=== PATIENT | male | born 1955 | race Caucasian/White ===

== ENCOUNTER 2017-11-21 10:52 | Emergency (ER) | payer SELFPAY ==
[2017-11-21] MEDS ORDERED: Aspirin 325 MG TAB ONE (11:09)
[2017-11-21 11:23] LABS: #Eosinphils 0.1 thou/uL (0.0-0.7); #Lymphocytes 1.6 thou/uL (1.20-3.40); #Monocytes 0.7 thou/uL (0.11-0.59); #Neutrophils 5.8 thou/uL (1.40-6.50); %Basophils 0.4 % (0.0-1.0); %Eosinophils 0.8 % (0.0-10.0); %Lymphocytes 19.2 % (21.0-51.0); %Monocytes 8.6 % (0.0-10.0); Hemoglobin 13.5 g/dL (14.0-18.0); Mean Corpuscular HGB CONC 33.2 g/dL (32.0-36.0); Mean Corpuscular Hemoglobin 31.3 pg (27.0-31.0); Mean Corpuscular Volume 94.2 fl (80.0-94.0); Mean Platelet Volume 6.9 fL (7.4-10.4); Platelet Count 264 thou/uL (130-400); RBC Distribution Width 12.1 % (11.5-14.5); Red Blood Cell (RBC) Count 4.31 mill/uL (4.70-6.10); White Blood Cell (WBC) Count 8.2 thou/uL (4.8-10.8)
[2017-11-21 11:32] LABS: INR-International Normal Ratio 1.1; PTT 34.3 SEC (22.9-36.1); Prothrombin Time 14.5 SEC (12.0-14.7)
--- NOTE | 2017-11-21 11:38 | RAD ---
SINGLE VIEW CHEST: Date: 11/21/17 COMPARISON: 10/23/16. HISTORY: Chest pain for 1 hour. FINDINGS: Single view of the chest shows normal sized cardiomediastinal silhouette. There is hyperexpansion of the lungs consistent with COPD. The patient is status post sternotomy. The pacemaker is unchanged in position. The pacemaker is unchanged in position. There is no evidence of consolidation, mass, or ple ural effusion. IMPRESSION: 1. No evidence of acute cardiopulmonary disease. 2. COPD. POS: LIZ
[2017-11-21 11:42] LABS: ALT (SGPT) 15 U/L (8-55); AST (SGOT) 12 U/L (5-34); Albumin 3.5 g/dL (3.4-4.8); Alkaline Phosphatase 66 U/L (40-150); Anion Gap 12 mmol/L (10-20); BUN (Urea Nitrogen) 11 mg/dL (8.4-25.7); Bilirubin, Total 0.4 mg/dL (0.2-1.2); CK (CPK) 48 U/L (30-200); Calc. Creatinine Clearance 0 mL/min (70-130); Calcium 9.1 mg/dL (7.8-10.44); Carbon Dioxide 25 mmol/L (23-31); Chloride 102 mmol/L (98-107); Estimated GFR-MDRD Greater than 90; Globulin 3.3 g/dL (2.4-3.5); Glucose 130 mg/dL (80-115); Magnesium 2.1 mg/dL (1.6-2.6); Potassium 4.8 mmol/L (3.5-5.1); Protein, Total 6.8 g/dL (5.8-8.1); Sodium 134 mmol/L (136-145)
[2017-11-21 11:48] LABS: CKMB 1.6 ng/mL (0-6.6); Troponin I Less than 0.010 ng/mL (< 0.028)
[2017-11-21 11:52] LABS: Bilirubin Small (Negative); Blood, Urine Small (Negative); Glucose, Urine (Dipstick) 100 mg/dL (Negative); Leukocyte Negative (Negative); Nitrite Negative (Negative); Protein, Urine (Dipstick) > or equal to 300 mg/dL (Neg-Trace)
[2017-11-21 11:58] LABS: Specific Gravity, Urine 1.024 (1.002-1.036)
[2017-11-21 12:02] LABS: Bacteria/HPF 2+ HPF (None Seen)
[2017-11-21 12:14] LABS: Clarity Hazy (Clear)
[2017-11-21] MEDS ORDERED: Sulfameth/Trimethoprim DS 800-160mg TAB ONE (14:02)
== END 2017-11-21 14:10 | disposition home or self-care (01) ==
LOC: MADERS 10:52
DX: I20.9 Angina pectoris, unspecified (principal); N39.0 Urinary tract infection, site not specified; J44.9 Chronic obstructive pulmonary disease, unspecified; I11.0 Hypertensive heart disease with heart failure; I50.9 Heart failure, unspecified; F17.210 Nicotine dependence, cigarettes, uncomplicated
CPT/HCPCS: 71045; 80053; 81001; 82553; 83735; 83880; 84484; 85025; 85610; 85730; 87086; 93005; 94760

== ENCOUNTER 2018-11-21 02:11 | Emergency (ER) | payer OTHER, SELFPAY ==
[2018-11-21 02:52] LABS: #Basophils 0.1 thou/uL (0.0-0.2); #Eosinphils 0.1 thou/uL (0.0-0.7); #Lymphocytes 2.5 thou/uL (1.20-3.40); #Monocytes 0.9 thou/uL (0.11-0.59); #Neutrophils 10.8 thou/uL (1.40-6.50); %Basophils 0.9 % (0.0-1.0); %Eosinophils 0.7 % (0.0-10.0); %Lymphocytes 17.1 % (21.0-51.0); %Monocytes 6.3 % (0.0-10.0); Hemoglobin 13.3 g/dL (14.0-18.0); Mean Corpuscular HGB CONC 32.1 g/dL (32.0-36.0); Mean Corpuscular Hemoglobin 30.3 pg (27.0-31.0); Mean Corpuscular Volume 94.3 fL (78.0-98.0); Mean Platelet Volume 7.9 fL (7.4-10.4); Platelet Count 238 thou/uL (130-400); RBC Distribution Width 13.5 % (11.5-14.5); Red Blood Cell (RBC) Count 4.39 mill/uL (4.70-6.10); White Blood Cell (WBC) Count 14.5 thou/uL (4.8-10.8)
[2018-11-21 02:56] LABS: ALT (SGPT) 11 U/L (8-55); AST (SGOT) 14 U/L (5-34); Albumin 3.7 g/dL (3.4-4.8); Alkaline Phosphatase 85 U/L (40-150); Anion Gap 11 mmol/L (10-20); BUN (Urea Nitrogen) 10 mg/dL (8.4-25.7); Bilirubin, Total 0.3 mg/dL (0.2-1.2); Calc. Creatinine Clearance 0 mL/min (70-130); Calcium 8.3 mg/dL (7.8-10.44); Carbon Dioxide 27 mmol/L (23-31); Chloride 95 mmol/L (98-107); Estimated GFR-MDRD Greater than 90; Globulin 3.6 g/dL (2.4-3.5); Glucose 93 mg/dL (80-115); Protein, Total 7.3 g/dL (5.8-8.1); Sodium 129 mmol/L (136-145)
[2018-11-21] MEDS ORDERED: Sodium Chloride 0.9% 1,000 ML ONE (03:58)
[2018-11-21 04:24] LABS: Bilirubin Small (Negative); Blood, Urine Large (Negative); Clarity Cloudy (Clear); Glucose, Urine (Dipstick) Negative (Negative); Leukocyte Trace (Negative); Nitrite Negative (Negative); Protein, Urine (Dipstick) > or equal to 300 mg/dL (Neg-Trace)
[2018-11-21 04:27] LABS: Specific Gravity, Urine 1.031 (1.002-1.036)
[2018-11-21 04:32] LABS: Bacteria/HPF 1+ HPF (None Seen); Hyaline Casts/LPF NONE SEEN LPF (0-3 Hyaline); RBC/HPF GREATER THAN 50-TNTC HPF (0-3); WBC/HPF 21-50 HPF (0-3)
--- NOTE | 2018-11-21 08:45 | RAD ---
CHEST 1 VIEW: COMPARISON: 11/21/2017. FINDINGS: Stable sternotomy wires and left-sided transvenous pacemaker. Stable heart size. Lungs continue to be hyperinflated with chronic changes in the left and right lung apex. There is an increased density in the left perihilar region, not present on the previous examination. The possibility of a 3.9 cm mass is raised. Better interrogation with CT is recommended. IMPRESSION: Possible 3.9 cm left hilar mass. Better interrogation with CT is recommended. CODE T CODE LUNG NODULE POS: OFF
== END 2018-11-21 05:56 | disposition short-term general hospital (02) ==
LOC: MADERS 02:11
DX: R07.9 Chest pain, unspecified (principal); Z71.6 Tobacco abuse counseling; F17.210 Nicotine dependence, cigarettes, uncomplicated; I10 Essential (primary) hypertension
CPT/HCPCS: 71045; 80053; 81001; 83880; 84484; 85025; 93005; 94760; 96360; 99406; J7050

== ENCOUNTER 2020-01-10 13:44 | Emergency (ER) | payer OTHER ==
[2020-01-10 14:47] LABS: ALT (SGPT) 12 U/L (8-55); AST (SGOT) 9 U/L (5-34); Alkaline Phosphatase 78 U/L (40-110); Anion Gap 13 mmol/L (10-20); BUN (Urea Nitrogen) 6 mg/dL (8.4-25.7); Bilirubin, Total 0.3 mg/dL (0.2-1.2); Calc. Creatinine Clearance 0 mL/min (70-130); Calcium 7.9 mg/dL (7.8-10.44); Carbon Dioxide 25 mmol/L (23-31); Chloride 99 mmol/L (98-107); Globulin 3.1 g/dL (2.4-3.5); Glucose 102 mg/dL (80-115); Potassium 3.5 mmol/L (3.5-5.1); Protein, Total 6.1 g/dL (5.8-8.1); Sodium 133 mmol/L (136-145)
[2020-01-10 14:48] LABS: Alcohol Less than 10 mg/dL (Less than 10); CK (CPK) 24 U/L (30-200); Salicylate Less than 8.0 mg/dL (15.0-30.0)
[2020-01-10 14:53] LABS: Amphetamine Not Detected (NotDetected); Barbiturates Screen Not Detected (NotDetected); Benzodiazepine Screen Detected (NotDetected); Cocaine Metabolite Screen Not Detected (NotDetected); Medtox Control Line Valid? VALID (VALID); Methadone Not Detected (NotDetected); Methamphetamine Not Detected (NotDetected); Opiate Screen Not Detected (NotDetected); Oxycodone Screen Not Detected (NotDetected); Phencyclidine (PCP) Not Detected (NotDetected); THC/Cannabinoid Screen Detected (NotDetected); Tricyclic Screen Not Detected (NotDetected)
[2020-01-10 14:57] LABS: #Basophils 0.1 thou/uL (0.0-0.2); #Monocytes 0.8 thou/uL (0.11-0.59); #Neutrophils 8.5 thou/uL (1.40-6.50); %Eosinophils 0.4 % (0.0-10.0); %Lymphocytes 9.1 % (21.0-51.0); %Monocytes 7.6 % (0.0-10.0); %Neutrophils 81.9 % (42.0-75.0); Hemoglobin 10.8 g/dL (14.0-18.0); MDiff Complete? YES; Mean Corpuscular HGB CONC 30.1 g/dL (32.0-36.0); Mean Corpuscular Hemoglobin 24.6 pg (27.0-31.0); Mean Corpuscular Volume 81.8 fL (78.0-98.0); Platelet Count 276 thou/uL (130-400); Polychromasia SLIGHT = 2-3 cells (100X) (0-2/hpf); RBC Distribution Width 15.4 % (11.5-14.5); Red Blood Cell (RBC) Count 4.39 mill/uL (4.70-6.10); White Blood Cell (WBC) Count 10.4 thou/uL (4.8-10.8)
[2020-01-10] MEDS ORDERED: diphenhydrAMINE 25 MG CAP ONE (21:50)
[2020-01-11 04:11] LABS: SARS-CoV-2 NAA Rapid Test Not Detected (NotDetected)
--- NOTE | 2020-01-11 09:01 | RAD ---
RADIOGRAPH CHEST 1 VIEW: DATE: 01/11/2020 TIME: 8:58 AM HISTORY: 64-year-old male "[facility]" COMPARISON: 05/18/2019 FINDINGS: New finding of moderate size dense consolidation in right upper lobe, from superior hilum to superior and superolateral pleural surface. Again noted is the severe hyperinflation consistent with COPD. Narrowing of cardiac shadow due to the hyperinflation. New finding of patchy stellate density at left mid-lower lung zone. Again noted are the pulmonary changes at the left apex consistent with pulmonary scar. Left subclavian dual lead transvenous permanent pacemaker again noted. No pneumothorax. IMPRESSION: 1) new right upper lobe consistent with pneumonia. The other possibility is postobstructive pneumonit is due to potential right upper lobe endobronchial neoplastic mass. 2.) Small new stellate density at left mid-lower lung zone. Early pneumonia versus primary lung cance r. 3) severe emphysema.
[2020-01-11] MEDS ORDERED: Ibuprofen 200 MG TAB ONE (13:08)
[2020-01-11] MEDS ORDERED: diphenhydrAMINE 25 MG CAP ONE (13:08)
== END 2020-01-10 16:35 ==
LOC: MADERS 13:44
DX: R44.0 Auditory hallucinations (principal); Z11.59 Encounter for screening for other viral diseases; F41.9 Anxiety disorder, unspecified; F32.9 Major depressive disorder, single episode, unspecified; F17.210 Nicotine dependence, cigarettes, uncomplicated; I11.0 Hypertensive heart disease with heart failure; I50.9 Heart failure, unspecified; I25.10 Atherosclerotic heart disease of native coronary artery without angina pectoris; I95.9 Hypotension, unspecified; J44.9 Chronic obstructive pulmonary disease, unspecified
CPT/HCPCS: 36415; 71045; 80053; 80306; 80307; 82550; 84443; 85025; 93005; Q0163; U0002

== ENCOUNTER 2021-03-26 16:57 | Emergency (ER) | payer OTHER ==
[2021-03-26] MEDS ORDERED: Morphine 2 MG/ML VIAL ONE (17:42)
[2021-03-26 17:52] LABS: #Basophils 0.1 thou/uL (0.0-0.2); #Eosinphils 0.1 thou/uL (0.0-0.7); #Lymphocytes 1.1 thou/uL (1.20-3.40); %Basophils 0.8 % (0.0-1.0); %Lymphocytes 7.6 % (21.0-51.0); %Monocytes 7.2 % (0.0-10.0); %Neutrophils 83.3 % (42.0-75.0); Hemoglobin 12.8 g/dL (14.0-18.0); Mean Corpuscular HGB CONC 30.7 g/dL (32.0-36.0); Mean Corpuscular Hemoglobin 26.2 pg (27.0-31.0); Mean Corpuscular Volume 85.4 fL (78.0-98.0); Mean Platelet Volume 6.9 fL (7.4-10.4); Platelet Count 305 thou/uL (130-400); Red Blood Cell (RBC) Count 4.88 mill/uL (4.70-6.10); White Blood Cell (WBC) Count 14.4 thou/uL (4.8-10.8)
[2021-03-26 18:05] LABS: ALT (SGPT) 28 U/L (8-55); AST (SGOT) 17 U/L (5-34); Albumin 3.3 g/dL (3.4-4.8); Alkaline Phosphatase 115 U/L (40-110); Anion Gap 11 mmol/L (10-20); BUN (Urea Nitrogen) 13 mg/dL (8.4-25.7); Bilirubin, Total 0.5 mg/dL (0.2-1.2); CK (CPK) 22 U/L (30-200); Calc. Creatinine Clearance 0 mL/min (70-130); Calcium 9.2 mg/dL (7.8-10.44); Carbon Dioxide 30 mmol/L (23-31); Chloride 93 mmol/L (98-107); Globulin 3.1 g/dL (2.4-3.5); Glucose 90 mg/dL (80-115); Potassium 3.9 mmol/L (3.5-5.1); Protein, Total 6.4 g/dL (5.8-8.1); Sodium 130 mmol/L (136-145)
[2021-03-26] MEDS ORDERED: Furosemide 40 MG/4 ML VIAL ONE (18:22)
== END 2021-03-27 07:50 | disposition home or self-care (01) ==
LOC: MADERS 16:57
DX: M51.36 Other intervertebral disc degeneration, lumbar region (principal); I50.9 Heart failure, unspecified; I89.0 Lymphedema, not elsewhere classified; I95.9 Hypotension, unspecified; I25.2 Old myocardial infarction; F17.210 Nicotine dependence, cigarettes, uncomplicated
CPT/HCPCS: 36415; 71045; 80053; 82550; 83605; 83880; 84484; 85025; 93005; 94760; 96374; 96375; J1940; J2270